=== PATIENT | male | born 1995 | race Caucasian/White ===

== ENCOUNTER 2023-06-16 11:43 | Emergency (ER) | payer MEDICAID ==
[~2023-06-16] VITALS: Ht 167.6 cm; Wt 80.0 kg
[2023-06-16 11:47] VITALS: BP 113/87; PULSE 92; RESP 18; TEMP 97.6; O2SAT 96
== END 2023-06-16 13:35 | disposition home or self-care (01) ==
LOC: ER 11:44
DX: H61.22 Impacted cerumen, left ear (principal); R51.9 Headache, unspecified
CPT/HCPCS: 69209; 99282